=== PATIENT | female | born 1965 | race Caucasian/White ===

== ENCOUNTER → 2023-10-30 06:17 | Day surgery (SDC) | payer BC, SELFPAY ==
[2023-10-30 07:12] LABS: Glucose - Point of Care 87 mg/dl (70-99)
== END ==
LOC: GI 06:17
PROVIDERS: ATTENDING PHYSICIAN Internal Medicine
DX: K64.9 Unspecified hemorrhoids (principal); Z80.0 Family history of malignant neoplasm of digestive organs
CPT/HCPCS: 45378; 82962